=== PATIENT | male | born 1995 | race Caucasian/White ===

== ENCOUNTER → 2018-03-18 | Outpatient (CLI) | payer BC, SELFPAY | LOC: M LRY 14:07 | DX: K59.00 Constipation, unspecified (principal) | CPT/HCPCS: 74021 ==

== ENCOUNTER → 2021-07-21 | Outpatient (CLI) | payer SELFPAY ==
[~2021-07-21] MED LIST: /LANS30GR
== END ==
LOC: M LABSMTC 11:35
PROVIDERS: ATTEND Pediatrics
DX: Z20.822 Contact with and (suspected) exposure to COVID-19 (principal)

== ENCOUNTER → 2021-07-21 | Outpatient (REF) | LOC: M LABSMTC 12:42 | PROVIDERS: ATTEND Pediatrics | DX: Z20.822 Contact with and (suspected) exposure to COVID-19 (principal) ==

== ENCOUNTER → 2021-12-29 | Outpatient (REF) | payer BC | LOC: M LAB REF 15:37 | PROVIDERS: ATTEND Physician Assistant | DX: R10.32 Left lower quadrant pain (principal) ==

== ENCOUNTER 2022-06-19 15:58 | Emergency (ER) | payer BC ==
[~2022-06-19] VITALS: Ht 193 cm; Wt 102.0 kg
[2022-06-19 15:59] VITALS: BP 128/73
== END 2022-06-19 20:02 | disposition left against medical advice (07) ==
LOC: M ED 15:58
DX: Z53.21 Procedure and treatment not carried out due to patient leaving prior to being seen by health care provider (principal)